=== PATIENT | female | born 1995 | race Caucasian/White ===

== ENCOUNTER → 2020-08-11 | Outpatient (CLI) | payer OTHER ==
[~2020-08-11] MED LIST: AUGMENTIN 875-1 EACH PO; DOCUSATE SODIU100 MG PO; FLAGYL500 MG PO; HYDROCODON-ACE1 EAC4 PO; HYDROCODONE-AC1 EAC1 PO; IBUPROFEN800 MG PO; PRENATABS FA T1 EACH PO; ZOFRAN ODT 4 MG4 MG PO
[2020-08-11 15:41] LABS: HEMOGLOBIN 13.9 gm/dl (12.3-15.3); RED BLOOD COUNT 4.71 M/UL (4.00-5.10); WHITE BLOOD COUNT 11.2 K/UL (4.5-11.0)
[2020-08-11 16:04] LABS: BUN/CREATININE RATIO 16 (0-10)
== END ==
LOC: GENOP 14:32
PROVIDERS: Obstetrics & Gynecology
DX: Z01.812 Encounter for preprocedural laboratory examination (principal); O34.219 Maternal care for unspecified type scar from previous cesarean delivery; O24.419 Gestational diabetes mellitus in pregnancy, unspecified control; Z20.822 Contact with and (suspected) exposure to COVID-19
CPT/HCPCS: 36415; 80048; 81001; 85025; J7030; U0002

== ENCOUNTER 2020-08-12 06:38 | Inpatient (IN) | payer OTHER ==
[~2020-08-12] VITALS: Ht 160 cm; Wt 85.3 kg
[~2020-08-12 06:38] MED LIST changes: -DOCUSATE SODIU100 MG PO; -HYDROCODONE-AC1 EAC1 PO; -IBUPROFEN800 MG PO; -PRENATABS FA T1 EACH PO
[2020-08-12] MEDS ORDERED: PRENATABS FA T1 EACH PO (07:13)
[2020-08-12] MEDS ORDERED: IBUPROFEN800 MG PO (10:45)
[2020-08-12] MEDS ORDERED: DOCUSATE SODIU100 MG PO (10:45)
[2020-08-12] MEDS ORDERED: HYDROCODONE-AC1 EAC1 PO (10:45)
[2020-08-13 05:42] LABS: HEMOGLOBIN 12.1 gm/dl (12.3-15.3)
== END 2020-08-14 15:15 | disposition home or self-care (01) | DRG 788 ==
LOC: OB 06:38
PROVIDERS: ADMIT Obstetrics & Gynecology
PROC: 4A1HXCZ Monitoring of Products of Conception, Cardiac Rate, External Approach (ICD-10-PCS; 2020-08-12)
PROC: 10D00Z1 Extraction of Products of Conception, Low, Open Approach (ICD-10-PCS; principal; 2020-08-12 09:00)
DX: O34.211 Maternal care for low transverse scar from previous cesarean delivery (principal); Z3A.39 39 weeks gestation of pregnancy; Z37.0 Single live birth; Z20.822 Contact with and (suspected) exposure to COVID-19; O24.420 Gestational diabetes mellitus in childbirth, diet controlled; O36.63X0 Maternal care for excessive fetal growth, third trimester, not applicable or unspecified
CPT/HCPCS: 36415; 80048; 81001; 82800; 82962; 85014; 85018; 85025; C9113; J0690; J1200; J1885; J2274; J2405; J2590; J3010; J7030; J7120; U0002